=== PATIENT | female | born 1960 | race Caucasian/White ===

== ENCOUNTER 2024-11-24 15:06 | Inpatient (IN) | payer OTHER ==
[~2024-11-24] VITALS: Ht 165.1 cm; Wt 80.0 kg
[2024-11-24] VITALS (26 sets, daily range): BP systolic 79–163; BP diastolic 56–90; TEMP 97.6; O2SAT 68–100
[2024-11-24] MEDS: propofoL 1,000 MG in IV 1 EA IV SCH (15:30)
[2024-11-24 15:41] LABS: ABG BASE EXCESS -7.1 (-2.0-2.0); ABG HCO3 18.4 MMOL/L (22.0-26.0); ABG O2 SATURATION 97.4 % (95.0-99.0); ABG PARTIAL PRESSURE CO2 37.7 mmHg (35.0-45.0); ABG PARTIAL PRESSURE O2 99.8 mmHg (75.0-100.0); ABG STANDARD HCO3 18.8 MMOL/L. (22.0-26.0); ABG TOTAL CO2 19.6 MMOL/L (23.0-31.0); ABG pH (ARTERIAL) 7.307 UNITS (7.350-7.450)
[2024-11-24] MEDS ORDERED: ISOVUE-370 76% 100ML VIAL As Ordered ONE (15:49)
[2024-11-24 15:56] LABS: BASO % 0.1 % (0.0-1.0); HEMATOCRIT 48.2 % (36.0-47.0); HEMOGLOBIN 16.3 g/dl (12.0-15.5); LYMPH # 0.6 10^3/uL (1.5-5.0); LYMPH % 3.8 % (24.0-44.0); MEAN CORPUSCULAR HEMOGLOBIN 30.9 pg (27.0-33.0); MEAN CORPUSCULAR HGB CONC 33.8 g/dl (32.0-36.5); MEAN CORPUSCULAR VOLUME 91.5 fl (80.0-96.0); MONO # 0.7 10^3/uL (0.0-0.8); MONO % 4.7 % (2.0-8.0); NEUTROPHILS # 13.2 10^3/uL (1.5-8.5); NEUTROPHILS % 90.9 % (36.0-66.0); PLATELET COUNT, AUTOMATED 255 10^3/uL (150-450); RED BLOOD COUNT 5.27 10^6/uL (4.00-5.40); WHITE BLOOD COUNT 14.6 10^3/uL (4.0-10.0)
[2024-11-24 16:12] LABS: CK-MB VALUE MASS 32.9 NG/ML (<3.6)
[2024-11-24 16:13] LABS: ETHYL ALCOHOL (ETHANOL) 0.003 % (0.000-0.010)
[2024-11-24 16:14] LABS: INR 1.03; PARTIAL THROMBOPLASTIN TIME 25.5 SECONDS (24.8-34.2); PROTHROMBIN TIME 13.8 SECONDS (12.5-14.5)
[2024-11-24 16:15] LABS: ALBUMIN 3.4 G/DL (3.2-5.2); BILIRUBIN,DIRECT 0.2 MG/DL (<0.4); BILIRUBIN,TOTAL 0.5 MG/DL (0.3-1.2); CALCIUM LEVEL 8.8 MG/DL (8.3-10.6); CREATININE FOR GFR 0.75 MG/DL (0.55-1.30); POTASSIUM SERUM 3.8 MMOL/L (3.5-5.1); TOTAL PROTEIN 7.1 G/DL (5.7-8.2)
[2024-11-24 16:33] LABS: MB/CK RELATIVE INDEX 0.69 (< OR =4)
[2024-11-24] MEDS: NS (Normal Saline) 0.9% 2,420 ML in IV 1 EA IV ONE (16:55)
[2024-11-24] MEDS: PIPERACILLIN/TAZOBACTAM SOD 4.5 GM in DEXTROSE 5% (D5W) ADV/MINI-BAG 50 ML IV ONE (16:58)
[2024-11-24] MEDS: ETOMIDATE INJ 20MG/10ML VIAL IV ONE (17:14)
[2024-11-24] MEDS: ROCURONIUM BROMIDE 50MG/5ML VIAL IV ONE (17:14)
[2024-11-24 17:29] LABS: CK-MB VALUE MASS 59.9 NG/ML (<3.6)
[2024-11-24] MEDS ORDERED: HEPARIN SOD (PORCINE) 5000UNITS/ML 1ML VIAL/SYRINGE IV PRN (17:40)
[2024-11-24 17:49] LABS: MB/CK RELATIVE INDEX 0.63 (< OR =4)
[2024-11-24] MEDS: HEPARIN SOD (PORCINE) 5000UNITS/ML 1ML VIAL/SYRINGE IV ONE (18:04)
[2024-11-24] MEDS ORDERED: AMLO1TAB24 PO (18:05)
[2024-11-24] MEDS ORDERED: METO1TAB87 PO (18:05)
[2024-11-24] MEDS: HEPARIN DRIP 25,000 UNITS in IV 1 EA IV SCH (18:17)
[2024-11-24] MEDS ORDERED: HOME MED LIST COMPLETE! XX SCH (18:30)
[2024-11-24] MEDS: IPRATROPIUM 0.5MG/ALBUTEROL 2.5MG INH SOL UD 3ML NEB SCH (20:12)
[2024-11-24 20:44] LABS: ABG BASE EXCESS -6.9 (-2.0-2.0); ABG HCO3 18.6 MMOL/L (22.0-26.0); ABG O2 SATURATION 98.3 % (95.0-99.0); ABG PARTIAL PRESSURE CO2 37.7 mmHg (35.0-45.0); ABG PARTIAL PRESSURE O2 120.5 mmHg (75.0-100.0); ABG TOTAL CO2 19.8 MMOL/L (23.0-31.0); ABG pH (ARTERIAL) 7.311 UNITS (7.350-7.450)
[2024-11-24] MEDS: NS (Normal Saline) 0.9% 1,000 ML IV SCH (20:58)
[2024-11-24 22:34] LABS: BLOOD UREA NITROGEN 16 MG/DL (9-23); CALCIUM LEVEL 8.6 MG/DL (8.3-10.6); CARBON DIOXIDE LEVEL 22 MMOL/L (20-31); CHLORIDE LEVEL 104 MMOL/L (98-107); CREATININE FOR GFR 0.72 MG/DL (0.55-1.30); GLOMERULAR FILTRATION RATE > 90.0 (>45); GLUCOSE, FASTING 116 MG/DL (74-106); MAGNESIUM LEVEL 2.3 MG/DL (1.8-2.4); POTASSIUM SERUM 4.4 MMOL/L (3.5-5.1); SODIUM LEVEL 141 MMOL/L (136-145)
[2024-11-24] MEDS: PIPERACILLIN/TAZOBACTAM SOD 3.375 GM in DEXTROSE 5% (D5W) ADV/MINI-BAG 50 ML IV SCH (23:40)
[2024-11-25] VITALS (91 sets, daily range): BP systolic 57–186; BP diastolic 35–96; TEMP 97.5–101.7; O2SAT 91–100
[2024-11-25 05:26] LABS: ABG HCO3 20.1 MMOL/L (22.0-26.0); ABG O2 SATURATION 98.8 % (95.0-99.0); ABG PARTIAL PRESSURE CO2 34.6 mmHg (35.0-45.0); ABG PARTIAL PRESSURE O2 145.9 mmHg (75.0-100.0); ABG STANDARD HCO3 21.2 MMOL/L. (22.0-26.0); ABG TOTAL CO2 21.2 MMOL/L (23.0-31.0); ABG pH (ARTERIAL) 7.383 UNITS (7.350-7.450)
[2024-11-25 06:13] LABS: BASO % 0.2 % (0.0-1.0); HEMATOCRIT 44.5 % (36.0-47.0); HEMOGLOBIN 14.7 g/dl (12.0-15.5); LYMPH # 0.6 10^3/uL (1.5-5.0); LYMPH % 4.8 % (24.0-44.0); MEAN CORPUSCULAR HEMOGLOBIN 31.1 pg (27.0-33.0); MEAN CORPUSCULAR VOLUME 94.1 fl (80.0-96.0); MONO # 1.1 10^3/uL (0.0-0.8); MONO % 8.1 % (2.0-8.0); NEUTROPHILS # 11.3 10^3/uL (1.5-8.5); NEUTROPHILS % 86.6 % (36.0-66.0); PLATELET COUNT, AUTOMATED 187 10^3/uL (150-450); RED BLOOD COUNT 4.73 10^6/uL (4.00-5.40); WHITE BLOOD COUNT 13.1 10^3/uL (4.0-10.0)
[2024-11-25 06:32] LABS: LDH LACTATE DEHYDROGENASE 569 U/L (120-246)
[2024-11-25 06:46] LABS: ALBUMIN 2.6 G/DL (3.2-5.2); ALKALINE PHOSPHATASE 62 U/L (35-104); ALT/SGPT 108 U/L (7.0-40); AST/SGOT 275 U/L (<34); BILIRUBIN,TOTAL 0.5 MG/DL (0.3-1.2); BLOOD UREA NITROGEN 13 MG/DL (9-23); CALCIUM LEVEL 7.9 MG/DL (8.3-10.6); CARBON DIOXIDE LEVEL 22 MMOL/L (20-31); CHLORIDE LEVEL 106 MMOL/L (98-107); CHOLESTEROL LEVEL 159 MG/DL (<200); CPK CREATINE PHOSPHOKINASE 11118 U/L (34-145); CREATININE FOR GFR 0.66 MG/DL (0.55-1.30); GLOMERULAR FILTRATION RATE > 90.0 (>45); GLUCOSE, FASTING 173 MG/DL (74-106); PHOSPHORUS LEVEL 2.2 MG/DL (2.4-5.1); POTASSIUM SERUM 3.8 MMOL/L (3.5-5.1); SODIUM LEVEL 139 MMOL/L (136-145); TOTAL PROTEIN 5.6 G/DL (5.7-8.2); TRIGLYCERIDES LEVEL 116 MG/DL (<150)
[2024-11-25 06:54] LABS: AMPHETAMINES LEVEL URINE NEGATIVE (NEGATIVE); BARBITURATES URINE NEGATIVE (NEGATIVE); BENZODIAZEPINES URINE NEGATIVE (NEGATIVE)
[2024-11-25 06:55] LABS: CANNABINOIDS URINE NEGATIVE (NEGATIVE); COCAINE METABOLITE URINE NEGATIVE (NEGATIVE); METHADONE URINE NEGATIVE (NEGATIVE); OPIATES URINE NEGATIVE (NEGATIVE); PHENCYCLIDINE URINE NEGATIVE (NEGATIVE)
[2024-11-25] MEDS: PANTOPRAZOLE 40MG VIAL IV SCH (08:33)
[2024-11-25] MEDS ORDERED: propofoL 1,000 MG in IV 1 EA IV SCH (10:30)
[2024-11-25] MEDS ORDERED: HEPARIN SOD (PORCINE) 5000UNITS/ML 1ML VIAL/SYRINGE IV PRN (10:30)
[2024-11-25] MEDS: HEPARIN DRIP 25,000 UNITS in IV 1 EA IV SCH (12:39)
[2024-11-25] MEDS ORDERED: AMIODARONE HCL 150 MG/100 ML PREMIXED BAG (NEXTERONE) As Ordered ONE (14:20)
[2024-11-25] MEDS: AMIODARONE HCL 150 MG in IV 1 EA IV SCH (14:50)
[2024-11-25] MEDS: KETOROLAC 30 MG/ML 1ML VIAL IV ONE (15:00)
[2024-11-25] MEDS: AMIODARONE HCL 360 MG in IV 1 EA IV SCH ×2 (15:56→21:48)
[2024-11-25 17:04] LABS: CALCIUM LEVEL 9.1 MG/DL (8.3-10.6); CREATININE FOR GFR 0.84 MG/DL (0.55-1.30); GLOMERULAR FILTRATION RATE 78.5 (>45); MAGNESIUM LEVEL 2.6 MG/DL (1.8-2.4); POTASSIUM SERUM 3.5 MMOL/L (3.5-5.1)
[2024-11-25] MEDS: LR 1,000 ML IV ONE ×2 (17:30→18:30)
[2024-11-25] MEDS: DESMOPRESSIN 4 MCG/ML INJ VIAL/AMP IV ONE (17:30)
[2024-11-25] MEDS: dilTIAZem 25MG/5ML VIAL IV STA (17:30)
[2024-11-25] MEDS: EPINEPHrine 1MG/10ML SYRINGE 1.5IN IV STA (17:45)
[2024-11-25] MEDS: NOREPINEPHRINE BITARTRATE 16 MG in D5W 484 ML IV SCH (17:55)
[2024-11-25] MEDS ORDERED: PHENYLephrine 500MCG 5ML (100MCG/ML) SYRINGE As Ordered ONE (17:57)
[2024-11-25] MEDS: NOREPINEPHRINE 4MG IN D5 250ML 4 MG in IV 1 EA IV SCH (18:11)
[2024-11-25] MEDS: PHENYLephrine 500MCG 5ML (100MCG/ML) SYRINGE IV SCH (18:50)
[2024-11-25] MEDS ORDERED: FLUID PLACE HOLDER IV SCH (19:20)
[2024-11-25] MEDS ORDERED: VANCOMYCIN HCL IV SCH (19:20)
[2024-11-25] MEDS: VANCOMYCIN HCL 1,500 MG, VIAL MATE ADAPTER 1 EACH in NS 500 ML IV ONE (20:21)
[2024-11-25] MEDS: VASOPRESSIN IN 0.9 % NACL 20 UNIT in IV 1 EA IV SCH (20:48)
[2024-11-25 23:32] LABS: CALCIUM LEVEL 7.6 MG/DL (8.3-10.6); CREATININE FOR GFR 0.93 MG/DL (0.55-1.30); GLOMERULAR FILTRATION RATE 69.5 (>45); MAGNESIUM LEVEL 2.1 MG/DL (1.8-2.4); POTASSIUM SERUM 3.5 MMOL/L (3.5-5.1)
[2024-11-26] VITALS (49 sets, daily range): BP systolic 97–135; BP diastolic 51–81; TEMP 97.2–98; O2SAT 89–98
[2024-11-26 04:11] LABS: ABG BASE EXCESS -4.3 (-2.0-2.0); ABG HCO3 20.7 MMOL/L (22.0-26.0); ABG O2 SATURATION 96.5 % (95.0-99.0); ABG PARTIAL PRESSURE CO2 37.8 mmHg (35.0-45.0); ABG PARTIAL PRESSURE O2 90.2 mmHg (75.0-100.0); ABG STANDARD HCO3 20.9 MMOL/L. (22.0-26.0); ABG TOTAL CO2 21.8 MMOL/L (23.0-31.0); ABG pH (ARTERIAL) 7.356 UNITS (7.350-7.450)
[2024-11-26] MEDS: VANCOMYCIN HCL 1,000 MG, VIAL MATE ADAPTER 1 EACH in NS 250 ML IV SCH (04:12)
[2024-11-26 04:29] LABS: HEMATOCRIT 36.8 % (36.0-47.0); MEAN CORPUSCULAR HEMOGLOBIN 31.5 pg (27.0-33.0); MEAN CORPUSCULAR HGB CONC 32.9 g/dl (32.0-36.5); MEAN CORPUSCULAR VOLUME 95.8 fl (80.0-96.0); PLATELET COUNT, AUTOMATED 163 10^3/uL (150-450); RED BLOOD COUNT 3.84 10^6/uL (4.00-5.40)
[2024-11-26 04:31] LABS: HEMOGLOBIN 12.1 g/dl (12.0-15.5)
[2024-11-26 04:47] LABS: ALBUMIN 1.8 G/DL (3.2-5.2); BILIRUBIN,TOTAL 0.3 MG/DL (0.3-1.2); CALCIUM LEVEL 7.6 MG/DL (8.3-10.6); CREATININE FOR GFR 1.2 MG/DL (0.55-1.30); GLOMERULAR FILTRATION RATE 51.2 (>45); POTASSIUM SERUM 3.4 MMOL/L (3.5-5.1); TOTAL PROTEIN 4.9 G/DL (5.7-8.2)
[2024-11-26] MEDS: KCL 10MEQ/100ML SWI (KRUN) 10 MEQ in IV 1 EA IV SCH (05:32)
[2024-11-26 17:39] LABS: CALCIUM LEVEL 3.7 MG/DL (8.3-10.6); CREATININE FOR GFR 1.11 MG/DL (0.55-1.30); GLOMERULAR FILTRATION RATE 56.2 (>45); MAGNESIUM LEVEL 1.2 MG/DL (1.8-2.4); POTASSIUM SERUM 2.2 MMOL/L (3.5-5.1)
[2024-11-26] MEDS: CALCIUM GLUCONATE 1,000 MG in DEXTROSE 5% (D5W) MINI-BAG PLU 100 ML IV ONE (17:41)
[2024-11-26] MEDS: AMIODARONE HCL 360 MG in IV 1 EA IV SCH (18:01)
[2024-11-26] MEDS: KCL 20MEQ IN 100ML SWI (KRUN) 20 MEQ in IV 1 EA IV ONE ×3 (18:08→20:10)
[2024-11-26] MEDS: LR 1,000 ML IV ONE (18:08)
[2024-11-26] MEDS: MAG SULF 1GM/100ML (MAG RUN) 1 GM in IV 1 EA IV SCH (18:34)
[2024-11-26] MEDS: SODIUM BICARBONATE 150 MEQ in D5W 1,000 ML IV SCH (19:51)
[2024-11-26 23:47] LABS: CALCIUM LEVEL 7.5 MG/DL (8.3-10.6); CREATININE FOR GFR 2.11 MG/DL (0.55-1.30); POTASSIUM SERUM 4.4 MMOL/L (3.5-5.1)
[2024-11-27] VITALS (26 sets, daily range): BP systolic 91–137; BP diastolic 45–63; TEMP 93.2–97.3; O2SAT 86–100
[2024-11-27] MEDS: LACTATED RINGER'S 1000 ML IV ONE (01:38)
[2024-11-27 05:15] LABS: ABG BASE EXCESS -4.6 (-2.0-2.0); ABG O2 SATURATION 98.3 % (95.0-99.0); ABG PARTIAL PRESSURE CO2 47.1 mmHg (35.0-45.0); ABG PARTIAL PRESSURE O2 119.5 mmHg (75.0-100.0); ABG STANDARD HCO3 20.7 MMOL/L. (22.0-26.0); ABG TOTAL CO2 23.5 MMOL/L (23.0-31.0); ABG pH (ARTERIAL) 7.288 UNITS (7.350-7.450)
[2024-11-27 05:22] LABS: HEMATOCRIT 31.5 % (36.0-47.0); MEAN CORPUSCULAR HEMOGLOBIN 31.2 pg (27.0-33.0); MEAN CORPUSCULAR HGB CONC 31.7 g/dl (32.0-36.5); MEAN CORPUSCULAR VOLUME 98.1 fl (80.0-96.0); PLATELET COUNT, AUTOMATED 138 10^3/uL (150-450); RED BLOOD COUNT 3.21 10^6/uL (4.00-5.40); WHITE BLOOD COUNT 7.7 10^3/uL (4.0-10.0)
[2024-11-27 05:52] LABS: CALCIUM LEVEL 7.4 MG/DL (8.3-10.6); CREATININE FOR GFR 2.43 MG/DL (0.55-1.30); POTASSIUM SERUM 3.4 MMOL/L (3.5-5.1)
[2024-11-27] MEDS: KCL 20MEQ IN 100ML SWI (KRUN) 20 MEQ in IV 1 EA IV ONE (06:21)
[2024-11-27 06:40] LABS: MAGNESIUM LEVEL 2.6 MG/DL (1.8-2.4)
[2024-11-27 07:10] LABS: ABG BASE EXCESS -3.7 (-2.0-2.0); ABG HCO3 22.5 MMOL/L (22.0-26.0); ABG O2 SATURATION 95.3 % (95.0-99.0); ABG PARTIAL PRESSURE CO2 45.2 mmHg (35.0-45.0); ABG STANDARD HCO3 21.4 MMOL/L. (22.0-26.0); ABG TOTAL CO2 23.8 MMOL/L (23.0-31.0); ABG pH (ARTERIAL) 7.314 UNITS (7.350-7.450)
[2024-11-27] MEDS: NOREPINEPHRINE 4MG IN D5 250ML 4 MG in IV 1 EA IV SCH (13:09)
[2024-11-27 14:30] LABS: CALCIUM LEVEL 7.8 MG/DL (8.3-10.6); CREATININE FOR GFR 2.72 MG/DL (0.55-1.30); GLOMERULAR FILTRATION RATE 19.2 (>45); MAGNESIUM LEVEL 2.2 MG/DL (1.8-2.4); POTASSIUM SERUM 3.5 MMOL/L (3.5-5.1)
[2024-11-27 14:32] LABS: ABG BASE EXCESS -3.8 (-2.0-2.0); ABG HCO3 20.4 MMOL/L (22.0-26.0); ABG O2 SATURATION 97.8 % (95.0-99.0); ABG PARTIAL PRESSURE O2 105.7 mmHg (75.0-100.0); ABG STANDARD HCO3 21.3 MMOL/L. (22.0-26.0); ABG TOTAL CO2 21.4 MMOL/L (23.0-31.0); ABG pH (ARTERIAL) 7.396 UNITS (7.350-7.450)
[2024-11-27] MEDS: AMIODARONE HCL 360 MG in IV 1 EA IV SCH (15:32)
[2024-11-27 17:57] LABS: BASO % 0.3 % (0.0-1.0); EOS # 0.2 10^3/uL (0.0-0.5); EOS % 1.6 % (0.0-3.0); HEMATOCRIT 34.6 % (36.0-47.0); HEMOGLOBIN 11.1 g/dl (12.0-15.5); LYMPH # 0.9 10^3/uL (1.5-5.0); LYMPH % 9.4 % (24.0-44.0); MEAN CORPUSCULAR HGB CONC 32.1 g/dl (32.0-36.5); MEAN CORPUSCULAR VOLUME 96.6 fl (80.0-96.0); MONO # 0.6 10^3/uL (0.0-0.8); MONO % 5.8 % (2.0-8.0); NEUTROPHILS % 81.9 % (36.0-66.0); PLATELET COUNT, AUTOMATED 173 10^3/uL (150-450); RED BLOOD COUNT 3.58 10^6/uL (4.00-5.40); WHITE BLOOD COUNT 9.7 10^3/uL (4.0-10.0)
[2024-11-27 18:06] LABS: ALBUMIN 1.8 G/DL (3.2-5.2); BILIRUBIN,TOTAL 0.4 MG/DL (0.3-1.2); CALCIUM LEVEL 7.7 MG/DL (8.3-10.6); CREATININE FOR GFR 2.93 MG/DL (0.55-1.30); GLOMERULAR FILTRATION RATE 17.5 (>45); TOTAL PROTEIN 5.1 G/DL (5.7-8.2)
== END 2024-11-27 15:30 | disposition expired | DRG 710 ==
LOC: EDBD 15:06 → EDAGE 15:06 → M ED 15:06 → M ED INP 18:34 → M ICU 19:57
PROVIDERS: ADMIT Internal Medicine Pulmonary Disease; ATTEND Internal Medicine Pulmonary Disease
PROC: 0BH17EZ Insertion of Endotracheal Airway into Trachea, Via Natural or Artificial Opening (ICD-10-PCS; principal; 2024-11-24)
PROC: 5A1945Z Respiratory Ventilation, 24-96 Consecutive Hours (ICD-10-PCS; 2024-11-24)
PROC: 04HY32Z Insertion of Monitoring Device into Lower Artery, Percutaneous Approach (ICD-10-PCS; 2024-11-25)
PROC: 06HM33Z Insertion of Infusion Device into Right Femoral Vein, Percutaneous Approach (ICD-10-PCS; 2024-11-25)
PROC: B246ZZZ Ultrasonography of Right and Left Heart (ICD-10-PCS; 2024-11-25)
DX: A41.9 Sepsis, unspecified organism (principal); G93.5 Compression of brain; I26.94 Multiple subsegmental thrombotic pulmonary emboli without acute cor pulmonale; I63.541 Cerebral infarction due to unspecified occlusion or stenosis of right cerebellar artery; J96.01 Acute respiratory failure with hypoxia; J69.0 Pneumonitis due to inhalation of food and vomit; G93.41 Metabolic encephalopathy; R65.21 Severe sepsis with septic shock; G93.1 Anoxic brain damage, not elsewhere classified; N17.9 Acute kidney failure, unspecified; G91.9 Hydrocephalus, unspecified; J43.9 Emphysema, unspecified; E87.20 Acidosis, unspecified; I24.89 Other forms of acute ischemic heart disease; I48.0 Paroxysmal atrial fibrillation; R04.2 Hemoptysis; I10 Essential (primary) hypertension; R74.01 Elevation of levels of liver transaminase levels; J98.11 Atelectasis; Z66 Do not resuscitate; Z79.899 Other long term (current) drug therapy

== ENCOUNTER → 2024-11-27 | Outpatient (REF) ==
[2024-11-27] VITALS (7 sets, daily range): BP systolic 94–128; BP diastolic 44–62; TEMP 97.5–99; O2SAT 95–98
[~2024-11-27] VITALS: Ht 165.1 cm; Wt 80.0 kg
[~2024-11-27] MED LIST: AMLO1TAB24 PO; METO1TAB87 PO; SODIUM CHLORIDE 23.4% INJ 40.8 MEQ in STERILE WATER LITER BAG 1,050 ML IV SCH
[2024-11-27] MEDS: AMIODARONE HCL 360 MG in IV 1 EA IV SCH (16:55)
[2024-11-27] MEDS: NOREPINEPHRINE 4MG IN D5 250ML 4 MG in IV 1 EA IV SCH (16:55)
[2024-11-27 17:29] LABS: ABG BASE EXCESS -2.5 (-2.0-2.0); ABG HCO3 23.1 MMOL/L (22.0-26.0); ABG O2 SATURATION 94.6 % (95.0-99.0); ABG PARTIAL PRESSURE O2 76.2 mmHg (75.0-100.0); ABG STANDARD HCO3 22.3 MMOL/L. (22.0-26.0); ABG TOTAL CO2 24.4 MMOL/L (23.0-31.0); ABG pH (ARTERIAL) 7.348 UNITS (7.350-7.450)
[2024-11-27 17:34] LABS: BASO % 0.3 % (0.0-1.0); EOS # 0.2 10^3/uL (0.0-0.5); EOS % 1.6 % (0.0-3.0); HEMATOCRIT 34.6 % (36.0-47.0); HEMOGLOBIN 11.2 g/dl (12.0-15.5); LYMPH # 0.9 10^3/uL (1.5-5.0); MEAN CORPUSCULAR HEMOGLOBIN 31.4 pg (27.0-33.0); MEAN CORPUSCULAR HGB CONC 32.4 g/dl (32.0-36.5); MEAN CORPUSCULAR VOLUME 96.9 fl (80.0-96.0); MONO # 0.5 10^3/uL (0.0-0.8); MONO % 5.6 % (2.0-8.0); NEUTROPHILS # 7.7 10^3/uL (1.5-8.5); NEUTROPHILS % 81.6 % (36.0-66.0); PLATELET COUNT, AUTOMATED 161 10^3/uL (150-450); RED BLOOD COUNT 3.57 10^6/uL (4.00-5.40); WHITE BLOOD COUNT 9.4 10^3/uL (4.0-10.0)
[2024-11-27] MEDS: HEPARIN DRIP 25,000 UNITS in IV 1 EA IV SCH (17:41)
[2024-11-27] MEDS: SODIUM BICARBONATE 150 MEQ in D5W 1,000 ML IV SCH (17:41)
[2024-11-27] MEDS: VASOPRESSIN IN 0.9 % NACL 20 UNIT in IV 1 EA IV SCH (17:42)
[2024-11-27 17:55] LABS: INR 1.13; PARTIAL THROMBOPLASTIN TIME 43.6 SECONDS (24.8-34.2); PROTHROMBIN TIME 14.8 SECONDS (12.5-14.5)
[2024-11-27 17:56] LABS: CK-MB VALUE MASS 47.2 NG/ML (<3.6)
[2024-11-27 18:10] LABS: ALBUMIN 1.5 G/DL (3.2-5.2); BILIRUBIN,DIRECT 0.3 MG/DL (<0.4); BILIRUBIN,TOTAL 0.4 MG/DL (0.3-1.2); CALCIUM LEVEL 7.4 MG/DL (8.3-10.6); CREATININE FOR GFR 2.95 MG/DL (0.55-1.30); GLOMERULAR FILTRATION RATE 17.4 (>45); MAGNESIUM LEVEL 2.4 MG/DL (1.8-2.4); MB/CK RELATIVE INDEX 1.76 (< OR =4); PHOSPHORUS LEVEL 4.3 MG/DL (2.4-5.1); POTASSIUM SERUM 4.2 MMOL/L (3.5-5.1); TOTAL PROTEIN 4.4 G/DL (5.7-8.2)
[2024-11-27 18:22] LABS: AMORPHOUS SEDIMENT SMALL (NEGATIVE); APPEARANCE, URINE TURBID (CLEAR); BACTERIA, URINE AUTO NEGATIVE (NEGATIVE); BILIRUBIN, URINE AUTO NEGATIVE (NEGATIVE); BLOOD, URINE BLOOD 3+ (NEGATIVE); COLOR, URINE AMBER (YELLOW); GLUCOSE, URINE (UA) AUTO 1+ mg/dL (NEGATIVE); GRANULAR CAST, URINE AUTO 16 /LPF; KETONE, URINE AUTO NEGATIVE (NEGATIVE); LEUKOCYTE ESTERASE, URINE AUTO 1+ (NEGATIVE); MUCUS, URINE SMALL (NEGATIVE); NITRITE, URINE AUTO NEGATIVE (NEGATIVE); PROTEIN, URINE AUTO 2+ mg/dL (NEGATIVE); RBC, URINE AUTO 17 /HPF (0-3); SPECIFIC GRAVITY URINE AUTO 1.029 (1.002-1.035); SQUAMOUS EPITHELIAL CELL UR AU 5 /HPF (0-6); UROBILINOGEN, URINE AUTO 0.2 mg/dL (0.0-2.0); WBC, URINE AUTO 17 /HPF (0-3)
[2024-11-27] MEDS: LR 1,000 ML IV ONE (18:57)
[2024-11-28] VITALS (32 sets, daily range): BP systolic 109–148; BP diastolic 51–70; TEMP 97.2–100.8; O2SAT 92–100
[2024-11-28] LABS: ABG BASE EXCESS -2.1 (-2.0-2.0); ABG HCO3 23.6 MMOL/L (22.0-26.0); ABG O2 SATURATION 95.3 % (95.0-99.0); ABG PARTIAL PRESSURE CO2 43.9 mmHg (35.0-45.0); ABG PARTIAL PRESSURE O2 81.6 mmHg (75.0-100.0); ABG STANDARD HCO3 22.7 MMOL/L. (22.0-26.0); ABG TOTAL CO2 24.9 MMOL/L (23.0-31.0); ABG pH (ARTERIAL) 7.348 UNITS (7.350-7.450)
[2024-11-28 00:29] LABS: ALBUMIN 1.7 G/DL (3.2-5.2); BILIRUBIN,TOTAL 0.4 MG/DL (0.3-1.2); CALCIUM LEVEL 7.7 MG/DL (8.3-10.6); CREATININE FOR GFR 3.29 MG/DL (0.55-1.30); GLOMERULAR FILTRATION RATE 15.3 (>45); POTASSIUM SERUM 4.8 MMOL/L (3.5-5.1); TOTAL PROTEIN 4.5 G/DL (5.7-8.2)
[2024-11-28 00:42] LABS: BASO % 0.4 % (0.0-1.0); EOS # 0.1 10^3/uL (0.0-0.5); EOS % 1.7 % (0.0-3.0); HEMATOCRIT 33.7 % (36.0-47.0); HEMOGLOBIN 10.8 g/dl (12.0-15.5); LYMPH # 0.9 10^3/uL (1.5-5.0); LYMPH % 10.9 % (24.0-44.0); MAGNESIUM LEVEL 2.2 MG/DL (1.8-2.4); MEAN CORPUSCULAR VOLUME 96.8 fl (80.0-96.0); MONO # 0.6 10^3/uL (0.0-0.8); MONO % 6.7 % (2.0-8.0); NEUTROPHILS # 6.6 10^3/uL (1.5-8.5); NEUTROPHILS % 79.2 % (36.0-66.0); PLATELET COUNT, AUTOMATED 168 10^3/uL (150-450); RED BLOOD COUNT 3.48 10^6/uL (4.00-5.40); WHITE BLOOD COUNT 8.3 10^3/uL (4.0-10.0)
[2024-11-28] MEDS: LR 500 ML IV ONE (01:31)
[2024-11-28] MEDS: FUROSEMIDE 20MG/2ML VIAL IV ONE (01:35)
[2024-11-28] MEDS: ceFAZolin SOD 1 GM in DEXTROSE 5% (D5W) ADV/MINI-BAG 50 ML IV SCH (01:36)
[2024-11-28] MEDS: LR 1,000 ML IV SCH (01:37)
[2024-11-28 05:33] LABS: BASO % 0.4 % (0.0-1.0); EOS # 0.2 10^3/uL (0.0-0.5); EOS % 1.6 % (0.0-3.0); HEMATOCRIT 34.5 % (36.0-47.0); LYMPH # 1.1 10^3/uL (1.5-5.0); LYMPH % 9.7 % (24.0-44.0); MEAN CORPUSCULAR HGB CONC 31.9 g/dl (32.0-36.5); MEAN CORPUSCULAR VOLUME 97.2 fl (80.0-96.0); MONO # 0.7 10^3/uL (0.0-0.8); MONO % 5.8 % (2.0-8.0); NEUTROPHILS # 9.2 10^3/uL (1.5-8.5); NEUTROPHILS % 81.8 % (36.0-66.0); PLATELET COUNT, AUTOMATED 189 10^3/uL (150-450); RED BLOOD COUNT 3.55 10^6/uL (4.00-5.40); WHITE BLOOD COUNT 11.2 10^3/uL (4.0-10.0)
[2024-11-28 06:13] LABS: ALBUMIN 1.7 G/DL (3.2-5.2); BILIRUBIN,TOTAL 0.3 MG/DL (0.3-1.2); CALCIUM LEVEL 7.8 MG/DL (8.3-10.6); CREATININE FOR GFR 3.52 MG/DL (0.55-1.30); GLOMERULAR FILTRATION RATE 14.1 (>45); MAGNESIUM LEVEL 2.2 MG/DL (1.8-2.4); PHOSPHORUS LEVEL 5.8 MG/DL (2.4-5.1); POTASSIUM SERUM 5.1 MMOL/L (3.5-5.1); TOTAL PROTEIN 4.4 G/DL (5.7-8.2)
[2024-11-28] MEDS: FUROSEMIDE 40MG/4ML VIAL IV ONE ×2 (08:27→17:34)
[2024-11-28 10:55] LABS: INR 1.2; PARTIAL THROMBOPLASTIN TIME 75.4 SECONDS (24.8-34.2); PROTHROMBIN TIME 15.5 SECONDS (12.5-14.5)
[2024-11-28 11:20] LABS: BILIRUBIN,TOTAL 0.4 MG/DL (0.3-1.2); CALCIUM LEVEL 7.5 MG/DL (8.3-10.6); CREATININE FOR GFR 3.73 MG/DL (0.55-1.30); GLOMERULAR FILTRATION RATE 13.1 (>45); MAGNESIUM LEVEL 2.2 MG/DL (1.8-2.4); POTASSIUM SERUM 5.2 MMOL/L (3.5-5.1); TOTAL PROTEIN 4.5 G/DL (5.7-8.2)
[2024-11-28 17:20] LABS: ALBUMIN 1.9 G/DL (3.2-5.2); BILIRUBIN,TOTAL 0.3 MG/DL (0.3-1.2); CALCIUM LEVEL 7.4 MG/DL (8.3-10.6); CREATININE FOR GFR 4.09 MG/DL (0.55-1.30); GLOMERULAR FILTRATION RATE 11.8 (>45); MAGNESIUM LEVEL 2.1 MG/DL (1.8-2.4); PHOSPHORUS LEVEL 6.3 MG/DL (2.4-5.1); POTASSIUM SERUM 5.7 MMOL/L (3.5-5.1); TOTAL PROTEIN 4.6 G/DL (5.7-8.2)
[2024-11-28 20:27] LABS: APPEARANCE, URINE CLOUDY (CLEAR); BACTERIA, URINE AUTO NEGATIVE (NEGATIVE); BILIRUBIN, URINE AUTO NEGATIVE (NEGATIVE); BLOOD, URINE BLOOD 3+ (NEGATIVE); COLOR, URINE AMBER (YELLOW); GLUCOSE, URINE (UA) AUTO 1+ mg/dL (NEGATIVE); KETONE, URINE AUTO NEGATIVE (NEGATIVE); LEUKOCYTE ESTERASE, URINE AUTO TRACE (NEGATIVE); NITRITE, URINE AUTO NEGATIVE (NEGATIVE); PROTEIN, URINE AUTO 3+ mg/dL (NEGATIVE); RBC, URINE AUTO 37 /HPF (0-3); SPECIFIC GRAVITY URINE AUTO 1.015 (1.002-1.035); SQUAMOUS EPITHELIAL CELL UR AU 1 /HPF (0-6); UROBILINOGEN, URINE AUTO 0.2 mg/dL (0.0-2.0); WBC, URINE AUTO 12 /HPF (0-3)
[2024-11-29] VITALS (7 sets, daily range): BP systolic 133–144; BP diastolic 61–68; TEMP 99.9; O2SAT 93–99
[2024-11-29 00:53] LABS: BASO % 0.2 % (0.0-1.0); EOS # 0.1 10^3/uL (0.0-0.5); EOS % 1.2 % (0.0-3.0); HEMATOCRIT 30.4 % (36.0-47.0); HEMOGLOBIN 9.9 g/dl (12.0-15.5); LYMPH % 10.8 % (24.0-44.0); MEAN CORPUSCULAR HEMOGLOBIN 31.3 pg (27.0-33.0); MEAN CORPUSCULAR HGB CONC 32.6 g/dl (32.0-36.5); MEAN CORPUSCULAR VOLUME 96.2 fl (80.0-96.0); MONO # 0.7 10^3/uL (0.0-0.8); MONO % 7.4 % (2.0-8.0); NEUTROPHILS # 7.3 10^3/uL (1.5-8.5); NEUTROPHILS % 79.7 % (36.0-66.0); PLATELET COUNT, AUTOMATED 162 10^3/uL (150-450); RED BLOOD COUNT 3.16 10^6/uL (4.00-5.40); WHITE BLOOD COUNT 9.1 10^3/uL (4.0-10.0)
[2024-11-29 01:41] LABS: ALBUMIN 1.9 G/DL (3.2-5.2); BILIRUBIN,TOTAL 0.3 MG/DL (0.3-1.2); CALCIUM LEVEL 7.4 MG/DL (8.3-10.6); CREATININE FOR GFR 4.51 MG/DL (0.55-1.30); GLOMERULAR FILTRATION RATE 10.5 (>45); MAGNESIUM LEVEL 2.1 MG/DL (1.8-2.4); PHOSPHORUS LEVEL 6.2 MG/DL (2.4-5.1); POTASSIUM SERUM 5.5 MMOL/L (3.5-5.1); TOTAL PROTEIN 4.4 G/DL (5.7-8.2)
== END ==
LOC: M ICUDONOR 15:53 → M ICU 16:05
DX: Z52.9 Donor of unspecified organ or tissue (principal)